=== PATIENT | female | born 1990 | race Caucasian/White ===

== ENCOUNTER → 2024-05-03 11:12 | Outpatient (CLI) | payer OTHER, SELFPAY ==
--- NOTE | 2024-05-03 11:14 | DI.RAD.S_ITS ---
PROCEDURE: XR LUMBAR SPINE 2-3V INDICATIONS: BACK PAIN TECHNIQUE: 3 views of the lumbar spine were acquired. COMPARISON: None. FINDINGS: Bones: 5 [id number] vertebrae are present. There is normal bony alignment. No vertebral body compression fractures. No suspicious bony lesions. Ljbm-ag-birrsaet disc height loss at L5-S1. Soft tissues: Overlying bowel gas pattern is normal. No suspicious soft tissue calcifications. IMPRESSION: [id number]-bw-[id number] disc height loss at L5-S1. Otherwise, normal appearance of the lumbar spine. Dictated by: Forrest Brock M.D. on 05/03/2024 at 16:38 Approved by: Forrest Brock M.D. on 05/03/2024 at 16:41
== END ==
PROVIDERS: PCP Nurse Practitioner Family; Referring Provider Nurse Practitioner Family; Visit Provider Nurse Practitioner Family
DX: M54.9 Dorsalgia, unspecified (principal)
CPT/HCPCS: 72100

== ENCOUNTER → 2024-06-10 09:13 | Outpatient (CLI) | payer OTHER, SELFPAY ==
--- NOTE | 2024-06-10 09:14 | DI.MRI.S_ITS ---
PROCEDURE: MR LUMBAR SPINE WO CON INDICATIONS: chronic lower back pain not improved with PT TECHNIQUE: Noncontrast sagittal T1 spin echo and T2 fast echo, sagittal STIR, and T2 fast spin echo through the lumbar spine. In cases with scoliosis, additional coronal T2 fast spin echo may be performed. COMPARISON: [facility], CR, XR LUMBAR SPINE 2-3V, 05/03/2024, 11:10. FINDINGS: Image quality: Excellent. Alignment and Curvature: There is normal bony alignment. Bone Marrow: Marrow is of normal overall signal. No acute vertebral body compression fractures. Spinal Cord: Conus medullaris terminates at the T12 level. Visualized cord demonstrates normal signal and size. A multiloculated, thin-walled cystic structure is present within the central canal, at the T12-L1 level, outside the dural sac, compressing the sac and its contents anterior and right. Its signal is essentially isointense to CSF, however does not appear to be contiguous with the dural sac. There are no intrinsic neural elements. There is thinning of the left L1 pedicle. No significant extension through the left T12-L1 neural foramen. Paraspinous Soft Tissues: No paravertebral masses. T12-L1: Normal disc. The dural sac remains normal caliber. Conus is normal morphology without deformity. The left T12 nerve root is not well seen. The right neural foramina is widely patent. L1-L2: Normal appearance. L2-L3: Normal appearance. L3-L4: Normal appearance. L4-L5: Mild facet hypertrophy. L5-S1: Mild disc height loss and desiccation. Small focal central disc protrusion with annular tear. No encroachment on the lateral recesses. No foraminal or central canal stenosis. IMPRESSION: L5-S1 disc degeneration with focal protrusion and annular tear. No nerve root compromise or central canal stenosis. Incidental epidural cystic mass at the T12-L1 level. Differential diagnosis includes nerve sheath cyst, much less likely nerve sheath tumor, or meningocele. Lumbar MR with contrast is recommended for confirmation of benign entity. Dictated by: Pam Gonsalez M.D. on 06/11/2024 at 15:23 Approved by: Pam Gonsalez M.D. on 06/11/2024 at 15:43
== END ==
PROVIDERS: PCP Nurse Practitioner Family; Referring Provider Nurse Practitioner Family; Visit Provider Nurse Practitioner Family
DX: M51.370 Other intervertebral disc degeneration, lumbosacral region with discogenic back pain only (principal); M51.27 Other intervertebral disc displacement, lumbosacral region; M48.9 Spondylopathy, unspecified; M54.9 Dorsalgia, unspecified; G89.29 Other chronic pain
CPT/HCPCS: 72148

== ENCOUNTER → 2024-06-27 12:37 | Outpatient (CLI) | payer OTHER, SELFPAY ==
--- NOTE | 2024-06-27 13:11 | DI.MRI.S_ITS ---
PROCEDURE: MR LUMBAR SPINE W CON INDICATIONS: incidental epidural cystic mass TECHNIQUE: After the administration of contrast, sagittal and axial T1 spin echo with fat saturation through the lumbar spine. COMPARISON: [facility], MR, MR LUMBAR SPINE WO CON, 06/10/2024, 9:35. FINDINGS: Image quality: Excellent. The previously identified focus of increased T2 signal posterior to the spinal canal at T12-L1 is again identified. It does not demonstrate contrast enhancement. No appreciable extension through the foramina. IMPRESSION: Increased T2 signal structure posterior to the spinal canal at T12-L1 does not demonstrate contrast enhancement. Finding is suspicious for benign nerve root cyst. Dictated by: Lynn Rios M.D. on 06/27/2024 at 20:41 Transcribed by: FELICE on 06/27/2024 at 20:43 Approved by: Chauncey Duke M.D. on 07/12/2024 at 16:20
== END ==
PROVIDERS: PCP Nurse Practitioner Family; Referring Provider Nurse Practitioner Family; Visit Provider Nurse Practitioner Family
DX: M89.8X8 Other specified disorders of bone, other site (principal); M54.50 Low back pain, unspecified; G89.29 Other chronic pain; M54.9 Dorsalgia, unspecified
CPT/HCPCS: 72149; A9579